=== PATIENT | female | born 1965 | race African-American/Black ===

== ENCOUNTER 2017-07-04 06:07 | Emergency (ER) | payer BC, MEDICAID ==
[~2017-07-04] VITALS: Ht 157.5 cm; Wt 82.0 kg
[~2017-07-04 06:07] MED LIST: OMNI1SUS RIGHT EYE
[2017-07-04 06:11] VITALS: BP 156/84; PULSE 86; RESP 18; TEMP 98.7; O2SAT 99
[2017-07-04] MEDS ORDERED: SODIUM CHLOR 0.9% 1000 ML INJ 1,000 ML IV SCH (06:59)
[2017-07-04] MEDS ORDERED: FAMOTIDINE 20 MG/2 ML VIAL IV PUSH ONE (07:00)
[2017-07-04] MEDS ORDERED: KETOROLAC TROMETHAMINE 30 MG/ML (IVP) VIAL IVP ONE (07:00)
[2017-07-04] MEDS ORDERED: MORPHINE SULFATE 4 MG/ML INJ IV PUSH ONE ×2 (07:00→08:00)
[2017-07-04] MEDS ORDERED: SODIUM CHLORIDE 0.9% FLUSH 10 ML FLUSH IV FLUSH PRN (07:00)
[2017-07-04] MEDS ORDERED: ONDANSETRON HCL 4 MG/2 ML VIAL IVP ONE (07:00)
--- NOTE | 2017-07-04 07:03 | PD ---
HPI Chief Complaint: Abdominal Pain Time Seen by Provider: 06:54 Travel History International Travel<30 days: No Contact w/Intl Traveler<30days: No Traveled to known affect area: No History of Present Illness HPI The patient is a 52-year-old -[place] female who presents to the emergency department for nausea and abdominal pain. The patient awakened this morning at approximately 5:30 AM and went to the bathroom when she developed generalized abdominal pain. The abdominal pain is generalized, but does radiate to the right lower quadrant, sharp, and associated with nausea. The patient denies any vomiting, diarrhea, or constipation. Last bowel movement was yesterday, normal per patient's report. Patient does have a history of section and cholecystectomy. She denies any history of pancreatitis or alcohol use. She denies any history nephrolithiasis, dysuria, frequency, urgency, vaginal discharge, or vaginal bleeding. She does state it is hard to take a deep breath secondary to the abdominal pain but denies any chest pain or shortness of breath. She denies any associated fever, chills, or sweats. Symptoms are moderate. 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 The patient is followed by her primary physician in [place], [place]. PFSH Past Medical History Heart Rhythm Problems: No Cancer: No Cardiovascular Problems: Yes (tricuspid blockage) High Cholesterol: No Chest Pain: Yes Diminished Hearing: No Endocrine: No Genitourinary: No Immune Disorder: No Musculoskeletal: No Neurologic: No Psychiatric: No Reproductive: No Respiratory: No Thyroid Disease: No Tetanus Vaccination: < 5 Years Influenza Vaccination: No ?: Not LMP: menapause Past Surgical History Abdominal Surgery: Yes (abd herina repair) Section: Yes Cholecystectomy: Yes Eye Surgery: Yes (3 cornea transplant) Other Surgery: Yes (, ) Social History Alcohol Use: No Tobacco Use: No Substance Use: No Allergies-Medications (Allergen,Severity, Reaction): Coded Allergies: No Known Allergies (Unverified , 07/04/17) Reported Meds & Prescriptions Reported Meds & Active Scripts Active Ibuprofen 600 Mg Tab 600 Mg PO Q6H PRN [place] (Hydrocodone-Acetaminophen) 5 Mg-325 Mg Tab 1 Tab PO Q6H PRN Review of Systems Except as stated in HPI: all other systems reviewed are Neg General / Constitutional: No: Fever Cardiovascular: No: Chest Pain or Discomfort Respiratory: No: Shortness of Breath Gastrointestinal: Positive: Nausea, Abdominal Pain, No: Vomiting, Diarrhea Genitourinary: No: Urgency, Frequency, Dysuria, Hematuria, Discharge, Vaginal Bleeding Musculoskeletal: No: Weakness Neurologic: No: Dizziness Physical Exam Narrative GENERAL: Awake, alert, pleasant 52-year-old female who appears her stated age and is in no acute respiratory distress. She does appear in moderate pain. SKIN: Focused skin assessment warm/dry. HEAD: Atraumatic. Normocephalic. EYES: Right eye appears to have postoperative changes. ENT: No nasal bleeding or discharge. Mucous membranes pink and moist. NECK: Trachea midline. No JVD. CARDIOVASCULAR: Regular rate and rhythm. No murmur appreciated. RESPIRATORY: No accessory muscle use. Clear to auscultation. Breath sounds equal bilaterally. GASTROINTESTINAL: Abdomen soft, diffusely tender. No guarding or rigidity. MUSCULOSKELETAL: No obvious deformities. No clubbing. No cyanosis. No edema. NEUROLOGICAL: Awake and alert. No obvious cranial nerve deficits. Motor grossly within normal limits. Normal speech. PSYCHIATRIC: Appropriate mood and affect; insight and judgment normal. Data Data Last Documented VS Vital Signs Date Time Temp Pulse Resp B/P (MAP) Pulse Ox O2 Delivery O2 Flow Rate FiO2 07/04/17 08:48 18 07/04/17 06:11 98.7 86 156/84 (108) 99 Orders Orders Complete Blood Count With Diff (07/04/17 06:59) Comprehensive Metabolic Panel (07/04/17 06:59) Lipase (07/04/17 06:59) Lactic Acid (07/04/17 06:59) Prothrombin Time / Inr (Pt) (07/04/17 06:59) Act Partial Throm Time (Ptt) (07/04/17 06:59) Urinalysis - C+S If Indicated (07/04/17 06:59) Ct Abd/Pel W/O Iv Contrast (07/04/17 06:59) Iv Access Insert/Monitor (07/04/17 06:59) Ecg Monitoring (07/04/17 06:59) Oximetry (07/04/17 06:59) Morphine Inj (Morphine Inj) (07/04/17 07:00) Ondansetron Inj (Zofran Inj) (07/04/17 07:00) Sodium Chlor 0.9% 1000 Ml Inj (Ns 1000 M (07/04/17 06:59) Sodium Chloride 0.9% Flush (Ns Flush) (07/04/17 07:00) Electrocardiogram (07/04/17 06:59) Famotidine Inj (Pepcid Inj) (07/04/17 07:00) Ketorolac Inj (Toradol Inj) (07/04/17 07:00) Morphine Inj (Morphine Inj) (07/04/17 08:00) Troponin I (07/04/17 07:49) Creatine Kinase (Cpk) (07/04/17 07:49) Dicyclomine (Bentyl) (07/04/17 08:45) Sodium Chlor 0.9% 1000 Ml Inj (Ns 1000 M (07/04/17 08:45) Hydromorphone Pf Inj (Dilaudid Pf Inj) (07/04/17 09:15) Lactic Acid (07/04/17 11:10) Us Pelvis Comp W Doppler (07/04/17 ) Hydromorphone Pf Inj (Dilaudid Pf Inj) (07/04/17 12:45) Sodium Chlorid 0.9% 500 Ml Inj (Ns 500 M (07/04/17 12:45) Ed Discharge Order (07/04/17 13:57) Ketorolac Inj (Toradol Inj) (07/04/17 14:00) Labs Laboratory Tests Test 07/04/17 07:10 07/04/17 08:00 07/04/17 10:55 White Blood Count 10.3 TH/MM3 Red Blood Count 4.85 MIL/MM3 Hemoglobin 12.6 GM/DL Hematocrit 38.0 % Mean Corpuscular Volume 78.3 FL Mean Corpuscular Hemoglobin 25.9 PG Mean Corpuscular Hemoglobin Concent 33.1 % Red Cell Distribution Width 14.2 % Platelet Count 269 TH/MM3 Mean Platelet Volume 9.1 FL Neutrophils (%) (Auto) 74.2 % Lymphocytes (%) (Auto) 18.4 % Monocytes (%) (Auto) 5.5 % Eosinophils (%) (Auto) 1.2 % Basophils (%) (Auto) 0.7 % Neutrophils # (Auto) 7.6 TH/MM3 Lymphocytes # (Auto) 1.9 TH/MM3 Monocytes # (Auto) 0.6 TH/MM3 Eosinophils # (Auto) 0.1 TH/MM3 Basophils # (Auto) 0.1 TH/MM3 CBC Comment DIFF FINAL Differential Comment Prothrombin Time 10.2 SEC Prothromb Time International Ratio 1.0 RATIO Activated Partial Thromboplast Time 25.0 SEC Blood Urea Nitrogen 10 MG/DL Creatinine 0.79 MG/DL Random Glucose 117 MG/DL Total Protein 8.2 GM/DL Albumin 3.5 GM/DL Calcium Level 8.9 MG/DL Alkaline Phosphatase 87 U/L Aspartate Amino Transf (AST/SGOT) 26 U/L Alanine Aminotransferase (ALT/SGPT) 22 U/L Total Bilirubin 0.5 MG/DL Sodium Level 138 MEQ/L Potassium Level 4.4 MEQ/L Chloride Level 108 MEQ/L Carbon Dioxide Level 21.0 MEQ/L Anion Gap 9 MEQ/L Estimat Glomerular Filtration Rate 92 ML/MIN Lactic Acid Level 2.5 mmol/L 2.1 mmol/L Total Creatine Kinase 152 U/L Troponin I LESS THAN 0.02 NG/ML Lipase 93 U/L Urine Color STRAW Urine Turbidity CLEAR Urine pH 6.0 Urine Specific [place] 1.007 Urine Protein NEG mg/dL Urine Glucose (UA) NEG mg/dL Urine Ketones NEG mg/dL Urine Occult Blood NEG Urine Nitrite NEG Urine Bilirubin NEG Urine Urobilinogen LESS THAN 2.0 MG/DL Urine Leukocyte Esterase SMALL Urine WBC LESS THAN 1 /hpf Urine Squamous Epithelial Cells 1 /hpf Urine Mucus FEW /lpf Microscopic Urinalysis Comment CULT NOT INDICATED MDM Medical Decision Making Medical Screen Exam Complete: Yes Emergency Medical Condition: Yes Medical Record Reviewed: Yes Interpretation(s) EKG reveals normal sinus rhythm with a rate of 72. Inverted T waves noted in V5 , V6. CT abdomen and pelvis reveals no acute process. Etiology such as pyelonephritis cannot be excluded without intravenous contrast. No evidence of pancreatitis. Mild prominence of common duct post cholecystectomy. Last Impressions Abdomen/Pelvis CT 07/04/17 0659 Signed Impressions: Service Date/Time: Tuesday, July 04, 2017 07:27 - CONCLUSION: Negative for acute process. Etiology such as pyelonephritis cannot be excluded without intravenous contrast. There is no evidence of pancreatitis Mild prominence of common duct post cholecystectomy Golden Chan MD FACR Pelvis Ultrasound 07/04/17 0000 Signed Impressions: Service Date/Time: Tuesday, July 04, 2017 12:56 - CONCLUSION: Fibroid uterus. Héctor Martinez MD Laboratory Tests Test 07/04/17 07:10 07/04/17 08:00 07/04/17 10:55 White Blood Count 10.3 TH/MM3 Red Blood Count 4.85 MIL/MM3 Hemoglobin 12.6 GM/DL Hematocrit 38.0 % Mean Corpuscular Volume 78.3 FL Mean Corpuscular Hemoglobin 25.9 PG Mean Corpuscular Hemoglobin Concent 33.1 % Red Cell Distribution Width 14.2 % Platelet Count 269 TH/MM3 Mean Platelet Volume 9.1 FL Neutrophils (%) (Auto) 74.2 % Lymphocytes (%) (Auto) 18.4 % Monocytes (%) (Auto) 5.5 % Eosinophils (%) (Auto) 1.2 % Basophils (%) (Auto) 0.7 % Neutrophils # (Auto) 7.6 TH/MM3 Lymphocytes # (Auto) 1.9 TH/MM3 Monocytes # (Auto) 0.6 TH/MM3 Eosinophils # (Auto) 0.1 TH/MM3 Basophils # (Auto) 0.1 TH/MM3 CBC Comment DIFF FINAL Differential Comment Prothrombin Time 10.2 SEC Prothromb Time International Ratio 1.0 RATIO Activated Partial Thromboplast Time 25.0 SEC Blood Urea Nitrogen 10 MG/DL Creatinine 0.79 MG/DL Random Glucose 117 MG/DL Total Protein 8.2 GM/DL Albumin 3.5 GM/DL Calcium Level 8.9 MG/DL Alkaline Phosphatase 87 U/L Aspartate Amino Transf (AST/SGOT) 26 U/L Alanine Aminotransferase (ALT/SGPT) 22 U/L Total Bilirubin 0.5 MG/DL Sodium Level 138 MEQ/L Potassium Level 4.4 MEQ/L Chloride Level 108 MEQ/L Carbon Dioxide Level 21.0 MEQ/L Anion Gap 9 MEQ/L Estimat Glomerular Filtration Rate 92 ML/MIN Lactic Acid Level 2.5 mmol/L 2.1 mmol/L Total Creatine Kinase 152 U/L Troponin I LESS THAN 0.02 NG/ML Lipase 93 U/L Urine Color STRAW Urine Turbidity CLEAR Urine pH 6.0 Urine Specific [place] 1.007 Urine Protein NEG mg/dL Urine Glucose (UA) NEG mg/dL Urine Ketones NEG mg/dL Urine Occult Blood NEG Urine Nitrite NEG Urine Bilirubin NEG Urine Urobilinogen LESS THAN 2.0 MG/DL Urine Leukocyte Esterase SMALL Urine WBC LESS THAN 1 /hpf Urine Squamous Epithelial Cells 1 /hpf Urine Mucus FEW /lpf Microscopic Urinalysis Comment CULT NOT INDICATED Differential Diagnosis Differential diagnosis includes appendicitis, pancreatitis, perforated viscus, colitis, diverticulitis, partial small bowel obstruction, peptic ulcer disease, pyelonephritis, nephrolithiasis. Narrative Course IV was established, labs are drawn and sent, and the patient was placed on cardiac telemetry monitoring and continuous pulse oximetry monitoring. The patient was administered morphine, Toradol, Zofran, Pepcid, and IV fluids. UA was sent to lab. CT of the abdomen and pelvis without IV contrast was ordered. EKG revealed normal sinus rhythm with left ventricular hypertrophy and inverted T waves in V5 and V6. Therefore troponin and CPK were sent to lab. The patient's white count is unremarkable. Initial lactic acid 2.5, patient was administered a second liter of IV fluids and lactic acid was reevaluated, came down to 2.1. CT the abdomen and pelvis was negative. The patient multiple doses of pain medications but continue to have pain. Therefore, ultrasound was performed to rule out torsion. Ultrasound is negative except for uterine fibroids. The patient's vitals were stable. Patient is afebrile. Patient's pain had improved. The patient will be discharged home. She will be provided a copy of her CT results, ultrasound results, lab results at discharge. She is advised to follow-up with her primary physician. Diagnosis Primary Impression: Abdominal pain Qualified Codes: R10.84 - Generalized abdominal pain Patient Instructions: General Instructions Additional Instructions: Please provide the patient a copy of her labs and ultrasound/CT results at discharge. Follow-up with your primary physician. Clear liquid diet and advance as tolerated. Follow-up with your primary physician. Return if symptoms worsen or progress. Med/Other Pt SpecificInfo: Prescription(s) given Scripts Ibuprofen (Ibuprofen) 600 Mg Tab 600 MG PO Q6H Y for Pain/Inflammation, #20 TAB 0 Refills Prov: Grupo Alonzo MD 07/04/17 Hydrocodone-Acetaminophen ([place]) 5 Mg-325 Mg Tab 1 TAB PO Q6H Y for PAIN, #12 TAB 0 Refills Prov: Grupo Alonzo MD 07/04/17 Disposition: DISCHARGE HOME Condition: Stable Grupo Alonzo MD Jul 04, 2017 07:03
[2017-07-04 07:33] LABS: AUTOMATED NEUTROPHIL # 7.6 TH/MM3 (1.8-7.7); BASOPHIL # 0.1 TH/MM3 (0-0.2); BASOPHIL % 0.7 % (0.0-2.0); EOSINOPHIL # 0.1 TH/MM3 (0-0.4); EOSINOPHIL % 1.2 % (0.0-4.0); HEMOGLOBIN 12.6 GM/DL (11.6-15.3); LYMPH % 18.4 % (9.0-44.0); LYMPHOCYTE # 1.9 TH/MM3 (1.0-4.8); MEAN CELL VOLUME 78.3 FL (80.0-100.0); MEAN CORPUSCULAR HEMOGLOBIN 25.9 PG (27.0-34.0); MEAN CORPUSCULAR HGB CONC 33.1 % (32.0-36.0); MEAN PLATELET VOLUME 9.1 FL (7.0-11.0); MONO % 5.5 % (0.0-8.0); MONOCYTE # 0.6 TH/MM3 (0-0.9); NEUT % 74.2 % (16.0-70.0); PLATELET COUNT 269 TH/MM3 (150-450); RED BLOOD COUNT 4.85 MIL/MM3 (4.00-5.30); RED CELL DISTRIBUTION WIDTH 14.2 % (11.6-17.2); WHITE BLOOD COUNT 10.3 TH/MM3 (4.0-11.0)
[2017-07-04 07:41] LABS: PROTHROMBIN TIME - PATIENT 10.2 SEC (9.8-11.6)
[2017-07-04 07:50] LABS: ALT (GPT) 22 U/L (10-53)
[2017-07-04 07:52] LABS: ALKALINE PHOSPHATASE 87 U/L (45-117); TOTAL BILIRUBIN ADULT 0.5 MG/DL (0.2-1.0); TOTAL PROTEIN 8.2 GM/DL (6.4-8.2)
[2017-07-04 07:55] LABS: ALBUMIN 3.5 GM/DL (3.4-5.0); AST (GOT) 26 U/L (15-37); BLOOD UREA NITROGEN 10 MG/DL (7-18); CALCIUM 8.9 MG/DL (8.5-10.1); CHLORIDE 108 MEQ/L (98-107); CREATININE 0.79 MG/DL (0.50-1.00); GLOMERULAR FILTRATION RATE 92 ML/MIN (>89); GLUCOSE,RANDOM 117 MG/DL (74-106); SODIUM (NA) 138 MEQ/L (136-145)
--- NOTE | 2017-07-04 07:56 | RADRPT ---
EXAM DATE/TIME: 07/04/2017 07:27 [facility] COMPARISON: No previous studies available for comparison. INDICATIONS : Abdominal pain, nausea, pain radiates to the back. ORAL CONTRAST: No oral contrast ingested. RADIATION DOSE: 14.45 CTDIvol (mGy) MEDICAL HISTORY : Cardiovascular disease. Borderline diabetes, SURGICAL HISTORY : Cholecystectomy. ENCOUNTER: Initial ACUITY: 1 day PAIN SCALE: 9/10 LOCATION: diffuse abdomen to right groin. TECHNIQUE: Volumetric scanning of the abdomen and pelvis was performed. Using automated exposure control and ad justment of the mA and/or kV according to patient size, radiation dose was kept as low as reasonably achievable to obtain optimal diagnostic quality images. DICOM format image data is available electro nically for review and comparison. FINDINGS: Lower lungs are clear. There is no pericardial effusion The liver is free of focal defects. Gallbladder surgically absent. Mild prominence of the common du ct. Spleen and pancreas appear normal. 5 cm right renal cyst. Left kidney normal Mesentery and colon are unremarkable. There is no ascites or adenopathy Prominent uterus. Adnexa are normal. There no inflammatory changes Abdominal wall is intact Minimal vascular callus cages are noted Review of bone windows reveals only mild degenerative changes. CONCLUSION: Negative for acute process. Etiology such as pyelonephritis cannot be excluded without intravenous c ontrast. There is no evidence of pancreatitis Mild prominence of common duct post cholecystectomy Golden Chan MD FACR on July 04, 2017 at 7:43 Board Certified Radiologist. This report was verified electronically.
[2017-07-04] MEDS ORDERED: DICYCLOMINE HCL 10 MG CAP PO ONE (08:45)
[2017-07-04] MEDS ORDERED: SODIUM CHLOR 0.9% 1000 ML INJ 1,000 ML IV ONE (08:45)
[2017-07-04 08:48] VITALS: RESP 18
[2017-07-04 09:08] LABS: BILIRUBIN, URINE NEG (NEG); BLOOD, URINE NEG (NEG); GLUCOSE,URINE NEG (NEG); KETONE, URINE NEG (NEG); MUCUS URINE FEW /lpf (OCC); NITRITE,URINE NEG (NEG); SQUAMOUS EPITHELIAL CELL URINE 1 /hpf (0-5); URINE LEUKOCYTE ESTERASE SMALL (NEG)
[2017-07-04 09:10] LABS: URINE COLOR STRAW (YELLW/STRAW)
[2017-07-04 09:15] LABS: TROPONIN I LESS THAN 0.02 NG/ML (0.02-0.05)
[2017-07-04] MEDS ORDERED: HYDROmorphone HCL PF 2 MG/ML VIAL IV PUSH ONE ×2 (09:15→12:45)
[2017-07-04] MEDS ORDERED: SODIUM CHLORID 0.9% 500 ML INJ 500 ML IV ONE (12:45)
--- NOTE | 2017-07-04 13:50 | RADRPT ---
EXAM DATE/TIME: 07/04/2017 12:56 [facility] COMPARISON: No previous studies available for comparison. INDICATIONS : Pelvic pain. MEDICAL HISTORY : Tricuspid blockage. Diabetes. SURGICAL HISTORY : Cholecystectomy. section. Cornea transplant x 3. Hernia repair. ENCOUNTER: Initial ACUITY: 1 day PAIN SCORE: 6/10 LOCATION: Bilateral pelvis MEASUREMENTS: UTERUS: 8.7 x 6.8 x 4.0 cm ENDOMETRIAL STRIPE: 3 mm RIGHT OVARY: 3.6 x 3.7 x 1.7 cm LEFT OVARY: 3.2 x 1.6 x 1.1 cm FINDINGS: UTERUS: Mildly heterogeneous right atrial echogenicity with several focal areas of altered echogenicity which may be fibroids. The largest of these is a 3.7 cm lesion in the lower body anteriorly RIGHT OVARY: No mass or other abnormality. LEFT OVARY: No mass or other abnormality. MISCELLANEOUS: No free fluid. CONCLUSION: Fibroid uterus. Héctor Martinez MD on July 04, 2017 at 13:46 Board Certified Radiologist. This report was verified electronically.
[2017-07-04] MEDS ORDERED: NORC5TAB PO (13:59)
[2017-07-04] MEDS ORDERED: IBUP-232 PO (13:59)
[2017-07-04] MEDS ORDERED: KETOROLAC TROMETHAMINE 30 MG/ML (IVP) VIAL IV PUSH ONE (14:00)
--- NOTE | 2017-07-04 15:47 | EKG ---
Date Performed: 07/04/2017 Time Performed: 07:45:44 PTAGE: 52 years EKG: Sinus rhythm LEFT VENTRICULAR HYPERTROPHY AND ST-T CHANGE ABNORMAL ECG Compared to PREVIOUS TRACING , the patient is no longer bradycardic. PREVIOUS TRACIN08/19/2014 04. 37 DOCTOR: Beti Beverly Interpretating Date/Time 07/04/2017 15:47:36
== END 2017-07-04 16:11 | disposition home or self-care (01) ==
LOC: NEPC 06:07
DX: R10.84 Generalized abdominal pain (principal); R94.31 Abnormal electrocardiogram [ECG] [EKG]
CPT/HCPCS: 74176; 76856; 80053; 81001; 82550; 83605; 83690; 84484; 85025; 85610; 85730; 93005; 93975; 96361; 96374; 96375; 96376; 99285; J1170; J1885; J2270; J2405; J7030; J7040

== ENCOUNTER 2017-08-18 19:47 | Emergency (ER) | payer BC ==
[~2017-08-18] VITALS: Ht 157.5 cm; Wt 86.0 kg
[~2017-08-18 19:47] MED LIST changes: +IBUP-232 PO; +NORC5TAB PO; -OMNI1SUS RIGHT EYE
[2017-08-18 20:24] VITALS: BP 146/72; PULSE 83; RESP 16; TEMP 98.3; O2SAT 100
[2017-08-18] MEDS ORDERED: ASPIRIN 81 MG CHEW TAB PO ONE (21:00)
[2017-08-18] MEDS ORDERED: SODIUM CHLORIDE 0.9% FLUSH 10 ML FLUSH IVF PRN (21:00)
[2017-08-18] MEDS ORDERED: NITROGLYCERIN 0.4 MG SL 25 TABS/BTL SL ONE (21:00)
[2017-08-18] MEDS ORDERED: ONDANSETRON ODT 4 MG TAB PO ONE (21:00)
--- NOTE | 2017-08-18 21:01 | PD ---
HPI Chief Complaint: Chest Pain Time Seen by Provider: 20:47 Travel History International Travel<30 days: No Contact w/Intl Traveler<30days: No Traveled to known affect area: No History of Present Illness HPI 52-year-old female presents to the emergency department for complaint of 6/10 retrosternal sharp chest pain. Patient states she has had intermittent chest pain 3 days. Patient denies any specific physical exertion or activity or injury that has occurred. Patient states exerting herself does seem to make symptoms worse and resting seems to provide her some relief. Pain does radiate to her right arm. Patient states she had an echo that showed abnormal valve in 2011 2014 she had a normal stress test and within the past 2 years she had a cardiac catheterization that was reportedly normal and no mention of any valve disease at that time. 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 The cardiac catheterization was performed in [place]. The patient denies history of known CAD, hypertension, dyslipidemia, diabetes, tobaccoism, or family history of premature onset heart disease. No recent long distance travel protracted bedrest. Patient did have eye surgery approximately month and a half ago and colonoscopy 2 months ago. Patient had no other recent procedures. No lower extremity pain or swelling. Patient does not note shortness of breath. No referred neck jaw mid scapular left upper extremity or abdominal pain. Patient had no diaphoresis. Patient's had mild nausea. Patient took a dose of ibuprofen yesterday for pain 8/10 intensity and took no pain today for discomfort 6/10 intensity. Patient states she called her primary care provider who encouraged her to come to the emergency room instead of coming to the office. Family history diabetes mother and sister and sister has had an episode of CHF. [facility] Past Medical History Narrative Medical Tricuspid valve disease, atypical chest pain normal stress test 2014 normal cardiac catheterization 2 years ago according to patient's report eye surgery cholecystectomy herniorrhaphy; no tobacco use; nursing notes reviewed Heart Rhythm Problems: No Cancer: No Cardiovascular Problems: Yes (tricuspid blockage) High Cholesterol: No Chest Pain: Yes Diminished Hearing: No Endocrine: No Genitourinary: No Immune Disorder: No Musculoskeletal: No Neurologic: No Psychiatric: No Reproductive: No Respiratory: No Thyroid Disease: No ?: Not LMP: 2012 Past Surgical History Abdominal Surgery: Yes (abd herina repair) Section: Yes Cholecystectomy: Yes Eye Surgery: Yes (3 cornea transplant) Other Surgery: Yes (, ) Social History Alcohol Use: No Tobacco Use: No Substance Use: No Allergies-Medications (Allergen,Severity, Reaction): Coded Allergies: No Known Allergies (Unverified , 08/18/17) Reported Meds & Prescriptions Reported Meds & Active Scripts Active Review of Systems Except as stated in HPI: all other systems reviewed are Neg General / Constitutional: No: Fever, Chills HENT: No: Congestion Cardiovascular: Positive: Chest Pain or Discomfort, No: Diaphoresis Respiratory: No: Shortness of Breath Gastrointestinal: Positive: Nausea, No: Abdominal Pain Genitourinary: No: Flank Pain Musculoskeletal: No: Myalgias, Arthralgias, Edema, Pain Skin: No Rash Neurologic: No: Weakness Psychiatric: No: Anxiety Hematologic/Lymphatic: No: Lymph Node Enlargement Physical Exam Narrative GENERAL: Well-developed well-nourished female no acute distress no respiratory SKIN: Warm and dry. HEAD: Normocephalic. EYES: No scleral icterus. No injection or drainage. NECK: Supple, trachea midline. No JVD or lymphadenopathy. CARDIOVASCULAR: Regular rate and rhythm without murmurs, gallops, or rubs. RESPIRATORY: Breath sounds equal bilaterally. No accessory muscle use. GASTROINTESTINAL: Abdomen soft, non-tender, nondistended. MUSCULOSKELETAL: No cyanosis, or edema. Bilateral radial and dorsalis pedis pulses 2+ to palpation bilaterally. BACK: Nontender without obvious deformity. No CVA tenderness. Data Data Last Documented VS Vital Signs Date Time Temp Pulse Resp B/P (MAP) Pulse Ox O2 Delivery O2 Flow Rate FiO2 08/19/17 00:00 65 17 127/60 (82) 100 Room Air 08/18/17 20:24 98.3 Orders Orders Electrocardiogram (08/18/17 20:47) Basic Metabolic Panel (Bmp) (08/18/17 20:47) Ckmb (Isoenzyme) Profile (08/18/17 20:47) Complete Blood Count With Diff (08/18/17 20:47) Magnesium (Mg) (08/18/17 20:47) Prothrombin Time / Inr (Pt) (08/18/17 20:47) Act Partial Throm Time (Ptt) (08/18/17 20:47) Troponin I (08/18/17 20:47) Ecg Monitoring (08/18/17 20:47) Bilateral Bp Monitoring (08/18/17 20:47) Iv Access Insert/Monitor (08/18/17 20:47) Oximetry (08/18/17 20:47) Oxygen Administration (08/18/17 20:47) Aspirin Chew (Aspirin Chew) (08/18/17 21:00) Sodium Chloride 0.9% Flush (Ns Flush) (08/18/17 21:00) Nitroglycerin Sl (Nitrostat Sl) (08/18/17 21:00) Chest, Single Ap (08/18/17 ) Ondansetron Odt (Zofran Odt) (08/18/17 21:00) CKMB (08/18/17 21:20) CKMB% (08/18/17 21:20) Ketorolac Inj (Toradol Inj) (08/18/17 22:30) Troponin I (08/18/17 22:54) Ed Discharge Order (08/19/17 02:31) Labs Laboratory Tests Test 08/18/17 21:20 08/18/17 23:55 White Blood Count 6.0 TH/MM3 Red Blood Count 4.69 MIL/MM3 Hemoglobin 12.1 GM/DL Hematocrit 36.1 % Mean Corpuscular Volume 76.9 FL Mean Corpuscular Hemoglobin 25.8 PG Mean Corpuscular Hemoglobin Concent 33.5 % Red Cell Distribution Width 14.0 % Platelet Count 302 TH/MM3 Mean Platelet Volume 8.7 FL Neutrophils (%) (Auto) 49.8 % Lymphocytes (%) (Auto) 40.5 % Monocytes (%) (Auto) 7.5 % Eosinophils (%) (Auto) 1.8 % Basophils (%) (Auto) 0.4 % Neutrophils # (Auto) 3.0 TH/MM3 Lymphocytes # (Auto) 2.4 TH/MM3 Monocytes # (Auto) 0.4 TH/MM3 Eosinophils # (Auto) 0.1 TH/MM3 Basophils # (Auto) 0.0 TH/MM3 CBC Comment DIFF FINAL Differential Comment Prothrombin Time 10.0 SEC Prothromb Time International Ratio 1.0 RATIO Activated Partial Thromboplast Time 24.4 SEC Blood Urea Nitrogen 10 MG/DL Creatinine 0.73 MG/DL Random Glucose 105 MG/DL Calcium Level 9.1 MG/DL Magnesium Level 2.1 MG/DL Sodium Level 141 MEQ/L Potassium Level 3.9 MEQ/L Chloride Level 106 MEQ/L Carbon Dioxide Level 25.1 MEQ/L Anion Gap 10 MEQ/L Estimat Glomerular Filtration Rate 101 ML/MIN Total Creatine Kinase 135 U/L Creatine Kinase MB 0.9 NG/ML Troponin I LESS THAN 0.02 NG/ML LESS THAN 0.02 NG/ML MDM Medical Decision Making Medical Screen Exam Complete: Yes Emergency Medical Condition: Yes Medical Record Reviewed: Yes Interpretation(s) EKG: Normal sinus rhythm rate 77 LVH by voltage criteria and nonspecific T-wave changes no acute ST elevation or injury pattern change noted Differential Diagnosis Chest pain, ACS, CA, atypical chest pain, pleurisy, musculoskeletal pain, PE, esophageal spasm, gastritis, peptic ulcer disease, pancreatitis, choledocholithiasis Narrative Course Patient placed on potline monitor IV access obtained specimens collected and sent for resulting EKG performed; patient given Zofran 4 mg ODT, aspirin 162 mg chewed, sublingual nitroglycerin 1 Patient resting comfortably waiting for lab work At 10:55 PM patient her labs are all within normal range and will repeat troponin I 1 anticipate will be able to discharge patient home with atypical chest Repeat troponin less than 0.02 , not elevated at 230 patient remains asymptomatic and stable for outpatient Diagnosis Primary Impression: Chest pain, atypical Referrals: Primary Care Physician 3 days Patient Instructions: General Instructions Additional Instructions: Follow-up with your primary care provider Take low-dose aspirin daily Return to the emergency department for concerns or change in condition May use ibuprofen 800 mg as often as every 8 hours as needed for associated with inflammation Increase fluid hydration Disposition: 01 DISCHARGE HOME Condition: Stable Jennifer Otto MD August 18, 2017 21:01
[2017-08-18 21:10] VITALS: BP 153/74; PULSE 74; RESP 20; O2SAT 97
--- NOTE | 2017-08-18 21:24 | RADRPT ---
EXAM DATE: 08/18/2017 9:20 PM EDT AGE/SEX: 52 years / Female INDICATIONS: Chest pain. CLINICAL DATA: This is the patient's initial encounter. Patient reports that signs and symptoms have been present for 1 day and indicates a pain score of 4/10. MEDICAL/SURGICAL HISTORY: None. None. COMPARISON: [facility] [place], CHEST SINGLE AP, 08/18/2014. . FINDINGS: No new focal pleural or parenchymal opacities. Cardiomediastinal contours are within normal limits. B ashley thorax is intact. CONCLUSION: 1. No acute abnormality or significant interval change. Electronically signed by: Wesley Page MD 08/18/2017 9:23 PM EDT
[2017-08-18 21:26] VITALS: BP 131/73; PULSE 70; RESP 20; O2SAT 97
[2017-08-18 21:47] VITALS: BP 125/68; PULSE 76; RESP 20; O2SAT 97
[2017-08-18 21:51] LABS: BASOPHIL % 0.4 % (0.0-2.0); EOSINOPHIL # 0.1 TH/MM3 (0-0.4); EOSINOPHIL % 1.8 % (0.0-4.0); HEMATOCRIT 36.1 % (35.0-46.0); HEMOGLOBIN 12.1 GM/DL (11.6-15.3); LYMPH % 40.5 % (9.0-44.0); LYMPHOCYTE # 2.4 TH/MM3 (1.0-4.8); MEAN CELL VOLUME 76.9 FL (80.0-100.0); MEAN CORPUSCULAR HEMOGLOBIN 25.8 PG (27.0-34.0); MEAN CORPUSCULAR HGB CONC 33.5 % (32.0-36.0); MEAN PLATELET VOLUME 8.7 FL (7.0-11.0); MONO % 7.5 % (0.0-8.0); MONOCYTE # 0.4 TH/MM3 (0-0.9); NEUT % 49.8 % (16.0-70.0); PLATELET COUNT 302 TH/MM3 (150-450); RED BLOOD COUNT 4.69 MIL/MM3 (4.00-5.30)
[2017-08-18 22:09] VITALS: BP 128/74; PULSE 66; RESP 20; O2SAT 98
[2017-08-18 22:11] LABS: BICARBONATE 25.1 MEQ/L (21.0-32.0); BLOOD UREA NITROGEN 10 MG/DL (7-18); CALCIUM 9.1 MG/DL (8.5-10.1); CHLORIDE 106 MEQ/L (98-107); CREATININE 0.73 MG/DL (0.50-1.00); GLOMERULAR FILTRATION RATE 101 ML/MIN (>89); GLUCOSE,RANDOM 105 MG/DL (74-106); MAGNESIUM 2.1 MG/DL (1.5-2.5); SODIUM (NA) 141 MEQ/L (136-145)
[2017-08-18 22:16] LABS: TROPONIN I LESS THAN 0.02 NG/ML (0.02-0.05)
[2017-08-18] MEDS ORDERED: KETOROLAC TROMETHAMINE 30 MG/ML (IVP) VIAL IV PUSH ONE (22:30)
[2017-08-18 23:30] VITALS: BP 114/58; PULSE 57; RESP 18; O2SAT 99
[2017-08-19] VITALS: BP 127/60; PULSE 65; RESP 17; O2SAT 100
[2017-08-19 01:00] VITALS: BP 126/75; PULSE 68; RESP 15; O2SAT 100
[2017-08-19 02:00] VITALS: BP 125/67; PULSE 66; RESP 15; O2SAT 100
[2017-08-19 03:00] VITALS: BP 125/67
--- NOTE | 2017-08-19 14:57 | EKG ---
Date Performed: 08/18/2017 Time Performed: 20:21:12 PTAGE: 52 years EKG: Sinus rhythm VOLTAGE CRITERIA FOR LVH NONSPECIFIC T-WAVE ABNORMALITY ABNORMAL ECG Since the PREVIOUS TRACING , no significant change noted PREVIOUS TRACIN07/04/2017 07.45 DOCTOR: Juan Dunn Interpretating Date/Time 08/19/2017 14:55:02
== END 2017-08-19 03:05 | disposition home or self-care (01) ==
LOC: NEPC 19:47
DX: R07.89 Other chest pain (principal); R11.0 Nausea
CPT/HCPCS: 71045; 80048; 82550; 82552; 83735; 84484; 85025; 85610; 85730; 93005; 96374; 99285; J1885